=== PATIENT | male | born 1980 | race Two or more races ===

== ENCOUNTER 2017-12-15 06:50 | Inpatient (IN) | payer MEDICAID, OTHER ==
[~2017-12-15] VITALS: Ht 185.4 cm; Wt 82.9 kg
[2017-12-15] MEDS ORDERED: ACETAMINOPHEN 325 MG TAB PO ONE ×2 (07:00→07:02)
[2017-12-15] MEDS ORDERED: SODIUM CHLORIDE 0.9% 1,000 ML IV ONE (07:54)
[2017-12-15] MEDS ORDERED: METOCLOPRAMIDE HCL 5MG/ml INJ 2ml VIAL IV ONE (08:00)
[2017-12-15] MEDS ORDERED: ACETAMINOPHEN 500 MG TAB PO ONE (08:00)
[2017-12-15] MEDS ORDERED: KETOROLAC TROMETH 30 MG/ML 1ML VIAL IV ONE (08:00)
[2017-12-15] MEDS ORDERED: AZITHROMYCIN 500MG/ 250ML 250 ML IV ONE (09:00)
[2017-12-15] MEDS ORDERED: cefTRIAXone 1GM/50ML D5W 50 ML IV ONE (09:00)
[2017-12-15 09:05] LABS: Hematocrit 34.7 % (41.0-53.0); Hemoglobin 11.8 g/dL (13.5-17.5); Mean Corpuscular Hemoglobin 30.9 pg (28.0-32.0); Mean Corpuscular Hgb Conc. 34.1 g/dL (32.0-36.0); Mean Corpuscular Volume 90.5 fL (80.0-100.0); Platelet Count (auto) 233 10^3/uL (140-450); Red Blood Cells 3.84 10^6/uL (4.5-5.90); Red Cell Distribution Width 12.3 % (11.8-14.3); White Blood Cell 13.7 10^3/uL (4.4-10.8)
[2017-12-15 09:13] LABS: Basophils % (manual) 0 (0.0-2.0); Blast Cells 0; Eosinophils % (manual) 0 (0-7); Myelocytes % 0; Promyelocytes % 0; Reactive Lymphocytes 0
[2017-12-15 09:24] LABS: Albumin 2.2 g/dL (3.4-5.0); Magnesium 2.4 mg/dL (1.6-2.6)
[2017-12-15 09:28] LABS: BUN/Creatinine Ratio 12.4; Bilirubin, Total 0.8 mg/dL (0.2-1.0)
[2017-12-15 09:53] LABS: Band Neutrophils % (manual) 5; Lymphocytes % (manual) 10 (10.0-50.0); Metamyelocytes % 1; Monocytes % (manual) 9 (0-12)
[2017-12-15 11:47] LABS: Urine Bacteria NONE SEEN /hpf (None Seen); Urine Blood TRACE /uL (Negative); Urine WBC 1 /hpf (0 - 3)
[2017-12-15] MEDS ORDERED: traMADol HCL 50 MG TAB PO PRN (12:00)
[2017-12-15] MEDS ORDERED: MORPHINE SULFATE 4 MG/ML SYR/VIAL IV PRN (12:00)
[2017-12-15] MEDS ORDERED: ONDANSETRON HCL 4 MG/2 ML VIAL IV PRN (12:00)
[2017-12-15] MEDS ORDERED: TEMAZEPAM 15 MG CAP PO PRN (12:00)
[2017-12-15] MEDS ORDERED: NITROGLYCERIN 0.4 MG SL TAB SL PRN (12:00)
[2017-12-15] MEDS ORDERED: LORazepam 0.5 MG TAB PO PRN (12:00)
[2017-12-15] MEDS ORDERED: OSELTAMIVIR 75 MG CAP PO ONE (12:00)
[2017-12-15] MEDS ORDERED: ACETAMINOPHEN 500 MG TAB PO PRN (12:00)
[2017-12-15] MEDS ORDERED: SODIUM CHLORIDE 0.9% 1,000 ML IV SCH (12:00)
[2017-12-15] MEDS ORDERED: KETOROLAC TROMETH 30 MG/ML 1ML VIAL IV PRN (12:00)
[2017-12-15] MEDS ORDERED: LACTULOSE 20Gm/30ML SOLN PO PRN (12:00)
[2017-12-15] MEDS ORDERED: ALBUTEROL SULF 2.5 MG/0.5ML(0.5%) NEB SOLN NEB PRN (12:00)
[2017-12-15] MEDS ORDERED: POTASSIUM EFFERVESENT TAB 25 MEQ PO ONE (12:00)
[2017-12-15] MEDS ORDERED: VANCOMYCIN PER PHARMACY 0 MG IV SCH (12:00)
[2017-12-15 12:13] LABS: Alcohol, Urine < 3.0 mg/dL (0-5); Amphetamine Screen, Urine POSITIVE (NEGATIVE); Barbiturate Scree,Urine NEGATIVE (NEGATIVE); Benzodiazephine Screen, Urine NEGATIVE (NEGATIVE); Cannabinoid Screen, Urine POSITIVE (NEGATIVE); Cocaine Screen, Urine NEGATIVE (NEGATIVE); Opiate Scree,Urine NEGATIVE (NEGATIVE); Phencyclidine Screen, Urine NEGATIVE (NEGATIVE)
[2017-12-15] MEDS ORDERED: GENTAMICIN SULFATE 280 MG in D5W 5% 100 ML IV ONE (12:15)
[2017-12-15] MEDS ORDERED: VANCOMYCIN 1GM/250ML 250 ML IV ONE (12:30)
[2017-12-15] MEDS: ALBUTEROL SULF 2.5 MG/0.5ML(0.5%) NEB SOLN NEB SCH ×2 (12:48→18:00)
[2017-12-15] MEDS: PANTOPRAZOLE 40 MG TAB PO SCH (13:05)
[2017-12-15 13:06] VITALS: BP 100/55
[2017-12-15 14:49] LABS: Lactic Acid w/Reflex 2.1 mmol/L (0.4-2.0)
[2017-12-15] MEDS: SOD CHL 0.9%/ KCL 20MEQ 1,000 ML IV SCH (15:03)
[2017-12-15 18:30] VITALS: BP 131/49
[2017-12-15 18:59] VITALS: BP 131/49
[2017-12-15 19:50] VITALS: BP 113/67
[2017-12-15] MEDS: VANCOMYCIN 1GM/250ML 250 ML IV SCH (20:38)
[2017-12-15] MEDS ORDERED: OSELTAMIVIR 75 MG CAP PO SCH (22:00)
[2017-12-15] MEDS: cefTRIAXone 1GM/50ML D5W 50 ML IV SCH (22:35)
[2017-12-15 23:42] VITALS: BP 96/56
[2017-12-16] MEDS: SOD CHL 0.9%/ KCL 20MEQ 1,000 ML IV SCH ×3 (01:35→11:30)
[2017-12-16 04:00] VITALS: BP 123/67
[2017-12-16] MEDS: VANCOMYCIN 1GM/250ML 250 ML IV SCH ×2 (04:35→14:56)
[2017-12-16 06:13] LABS: Hematocrit 40.1 % (41.0-53.0); Hemoglobin 13.8 g/dL (13.5-17.5); Mean Corpuscular Hemoglobin 31.6 pg (28.0-32.0); Mean Corpuscular Hgb Conc. 34.5 g/dL (32.0-36.0); Mean Corpuscular Volume 91.7 fL (80.0-100.0); Platelet Count (auto) 253 10^3/uL (140-450); Red Blood Cells 4.37 10^6/uL (4.5-5.90); Red Cell Distribution Width 12.5 % (11.8-14.3); White Blood Cell 10.4 10^3/uL (4.4-10.8)
[2017-12-16 06:17] LABS: Basophils % (manual) 0 (0.0-2.0); Blast Cells 0; Promyelocytes % 0; Reactive Lymphocytes 0
[2017-12-16 06:19] LABS: INR 0.89 (0.9-1.15); Partial Thromboplastin Time 26.1 sec (23.78-33.04); Prothrombin Time 9.6 sec (9.27-12.13)
[2017-12-16] MEDS: ALBUTEROL SULF 2.5 MG/0.5ML(0.5%) NEB SOLN NEB SCH ×3 (06:20→12:29)
[2017-12-16 06:31] LABS: Albumin 2.1 g/dL (3.4-5.0); Anion Gap 10 (5-15); Blood Urea Nitrogen 11 mg/dL (7-18); Carbon Dioxide 24 mmol/L (21-32); Chloride 101 mmol/L (98-107); Glucose 91 mg/dL (74-106); Potassium 3.4 mmol/L (3.5-5.1); Sodium 135 mmol/L (136-145)
[2017-12-16 06:38] LABS: Alanine Aminotransferase 51 U/L (16-61); Alkaline Phosphatase 110 U/L (45-117); Aspartate Aminotransferase 47 U/L (15-37); BUN/Creatinine Ratio 14.3; Bilirubin, Total 0.7 mg/dL (0.2-1.0); GFR African American 145 mL/min; GFR Non-African American 120 mL/min; Phosphorus 2.1 mg/dL (2.5-4.90); Total Protein 7.2 g/dL (6.4-8.2)
[2017-12-16 06:56] LABS: Band Neutrophils % (manual) 3; Eosinophils % (manual) 2 (0-7); Lymphocytes % (manual) 16 (10.0-50.0); Metamyelocytes % 1; Monocytes % (manual) 5 (0-12); Myelocytes % 3
[2017-12-16 08:00] VITALS: BP 124/76
[2017-12-16] MEDS: PANTOPRAZOLE 40 MG TAB PO SCH (10:05)
[2017-12-16] MEDS: cefTRIAXone 1GM/50ML D5W 50 ML IV SCH (10:05)
[2017-12-16] MEDS: ENOXAPARIN SOD 40 MG/0.4 ML SYRINGE SC SCH (10:06)
[2017-12-16] MEDS: AZITHROMYCIN 500MG/ 250ML 250 ML IV SCH (11:08)
[2017-12-16 12:00] VITALS: BP 105/58
[2017-12-16 16:00] VITALS: BP 120/69
[2017-12-16] MEDS ORDERED: cefTRIAXone 1GM/50ML D5W 50 ML IV ONE (17:15)
[2017-12-16 22:30] VITALS: BP 117/72
[2017-12-17 05:28] VITALS: BP_SYST 116; BP_SYST 140; BP_DIAS 53; BP_DIAS 89
[2017-12-17 09:01] VITALS: BP 114/72
[2017-12-17] MEDS: PANTOPRAZOLE 40 MG TAB PO SCH (09:58)
[2017-12-17] MEDS: ENOXAPARIN SOD 40 MG/0.4 ML SYRINGE SC SCH (09:58)
[2017-12-17] MEDS: AZITHROMYCIN 500MG/ 250ML 250 ML IV SCH (09:58)
[2017-12-17] MEDS: CEFTRIAXONE SODIUM 2 GM in D5W 5% 50 ML IV SCH (11:10)
[2017-12-17 13:00] VITALS: BP 154/70
[2017-12-17 17:00] VITALS: BP 127/75
[2017-12-17 21:18] VITALS: BP 108/63
[2017-12-18 05:29] VITALS: BP 103/61
[2017-12-18 09:00] VITALS: BP 95/51
[2017-12-18 09:11] VITALS: BP 109/66
[2017-12-18] MEDS: CEFTRIAXONE SODIUM 2 GM in D5W 5% 50 ML IV SCH (09:12)
[2017-12-18] MEDS: AZITHROMYCIN 500MG/ 250ML 250 ML IV SCH (10:14)
[2017-12-18] MEDS: ENOXAPARIN SOD 40 MG/0.4 ML SYRINGE SC SCH (10:14)
[2017-12-18] MEDS: PANTOPRAZOLE 40 MG TAB PO SCH (10:14)
[2017-12-18 13:00] VITALS: BP 107/61
[2017-12-18] MEDS ORDERED: POTASSIUM CHL 10 Meq TABLET PO ONE (15:15)
== END 2017-12-18 16:20 | disposition home or self-care (01) | DRG 720 ==
LOC: ER 06:50 → DOU IN ICU 06:51 → WEST WING 12-16 21:10
PROVIDERS: ADMIT Emergency Medicine; ATTEND Internal Medicine
DX: A41.9 Sepsis, unspecified organism (principal); E43 Unspecified severe protein-calorie malnutrition; J18.1 Lobar pneumonia, unspecified organism; E87.6 Hypokalemia; E87.1 Hypo-osmolality and hyponatremia; F17.210 Nicotine dependence, cigarettes, uncomplicated; R07.89 Other chest pain; F12.90 Cannabis use, unspecified, uncomplicated; F15.10 Other stimulant abuse, uncomplicated; J45.909 Unspecified asthma, uncomplicated; Z83.3 Family history of diabetes mellitus; Z90.49 Acquired absence of other specified parts of digestive tract; Z68.24 Body mass index [BMI] 24.0-24.9, adult
CPT/HCPCS: 36415; 71045; 71046; 80053; 80307; 81001; 83605; 83735; 83880; 84100; 84443; 84484; 85007; 85027; 85610; 85652; 85730; 86141; 87040; 87070; 87081; 87086; 87205; 87804; 87880; 93306; 94640; 94761; 96361; 96365; 96366; 96367; 96375; G0378; J0696; J1885; J7060

== ENCOUNTER 2023-04-29 18:59 | Emergency (ER) | payer MEDICAID, OTHER ==
[~2023-04-29] VITALS: Ht 185.4 cm; Wt 86.4 kg
[2023-04-29 19:37] VITALS: BP 129/70; PULSE 107; RESP 18; TEMP 98.9
[2023-04-29 20:49] VITALS: O2SAT 98
[2023-04-29] MEDS ORDERED: AUG875T PO (21:14)
[2023-04-29] MEDS: cefTRIAXone SOD 1,000 MG VL IM ONE (21:50)
[2023-04-29] MEDS: KETOROLAC TROMETH 30 MG/ML 1ML VIAL IM ONE (21:51)
== END 2023-04-29 22:05 | disposition home or self-care (01) ==
LOC: ER 18:59
DX: S51.811A Laceration without foreign body of right forearm, initial encounter (principal); S51.831A Puncture wound without foreign body of right forearm, initial encounter; W54.0XXA Bitten by dog, initial encounter; Y93.89 Activity, other specified; Y92.89 Other specified places as the place of occurrence of the external cause; Y99.8 Other external cause status
CPT/HCPCS: 12002; 96372; 99284; J0696; J1885